=== PATIENT | female | born 1995 | race Caucasian/White ===

== ENCOUNTER 2017-09-05 05:54 | Day surgery (SDC) | payer MEDICAID ==
[2017-09-04 15:05] VITALS: BP 161/90
[2017-09-04 15:46] LABS: BASOPHILS % (AUTO) 0.6 % (0.0-5.0); EOSINOPHILS % (AUTO) 1.2 % (0.0-8.0); HEMATOCRIT 35.7 % (36-48); LYMPHOCYTES % (AUTO) 23.2 % (21.0-51.0); MEAN CORPUSCULAR HEMOGLOBIN 32.8 pg (27.0-33.0); MEAN CORPUSCULAR HGB CONC 35.4 g/dL (32.0-36.0); MEAN CORPUSCULAR VOLUME 92.8 fL (79-99); MONOCYTES % (AUTO) 5.3 % (3.0-13.0); NEUTROPHILS % (AUTO) 69.7 % (40.0-77.0); PLATELET COUNT (AUTO) 459 K/uL (130-400); RED BLOOD CELL COUNT(AUTO) 3.85 MIL/uL (4.00-5.50); RED CELL DISTRIBUTION WIDTH 12.4 % (11.0-15.5); WHITE BLOOD COUNT (AUTO) 9.9 K/uL (4.8-10.8)
[2017-09-05] VITALS (25 sets, daily range): BP systolic 105–143; BP diastolic 50–90
[~2017-09-05] VITALS: Ht 170.2 cm; Wt 116.1 kg
[~2017-09-05 05:54] MED LIST: ALPR2TAB7 PO; FAMO20TA8 PO
[2017-09-05] MEDS: LACTATED RINGERS 1000ML 1,000 ML IV ONE (07:17)
[2017-09-05] MEDS ORDERED: GLYCOPYRROLATE 0.2 MG/ML 5 ML VIAL ONE (08:28)
[2017-09-05] MEDS ORDERED: LIDOCAINE PF 2% 5ML ABBOJECT ONE (08:28)
[2017-09-05] MEDS ORDERED: SUCCINYLCHOLINE 200MG/10ML SYR ONE (08:28)
[2017-09-05] MEDS ORDERED: DEXAMETHASONE SOD PHOSPHATE 10MG/ML 1ML VIAL ONE (08:28)
[2017-09-05] MEDS ORDERED: ONDANSETRON HCL 4 MG/2 ML VIAL ONE (08:28)
[2017-09-05] MEDS ORDERED: FENTANYL CITRATE PF 50 MCG/1 ML 2ML VIAL ONE ×2 (08:29→09:00)
[2017-09-05] MEDS ORDERED: MIDAZOLAM HCL 1 MG/ML 2ML VIAL ONE (08:29)
[2017-09-05] MEDS ORDERED: PROPOFOL 10 MG/ML 20ML VIAL IV ONE (08:29)
[2017-09-05] MEDS: MEPERIDINE-PF 50 MG/ML SYG ONE (10:42)
[2017-09-05] MEDS: ONDANSETRON HCL 4 MG/2 ML VIAL ONE (10:42)
[2017-09-05] MEDS: ACETAMINOPHEN-CODEINE 300/30MG TAB ONE (12:14)
[2017-09-05] MEDS ORDERED: LACTATED RINGERS 1000ML 1,000 ML IV ONE (14:32)
[2017-09-05] MEDS ORDERED: MEPERIDINE-PF 25 MG/ML SYG ONE (15:12)
[2017-09-05] MEDS: MEPERIDINE-PF 25 MG/ML SYG IV PRN (16:27)
== END 2017-09-05 17:15 | disposition home or self-care (01) ==
LOC: DAH 05:54
PROVIDERS: ATTEND Obstetrics & Gynecology
DX: D27.1 Benign neoplasm of left ovary (principal); N83.11 Corpus luteum cyst of right ovary; F31.9 Bipolar disorder, unspecified; F41.9 Anxiety disorder, unspecified; Z80.3 Family history of malignant neoplasm of breast; E66.01 Morbid (severe) obesity due to excess calories; Z68.41 Body mass index [BMI] 40.0-44.9, adult; Z79.899 Other long term (current) drug therapy; Z53.31 Laparoscopic surgical procedure converted to open procedure
CPT/HCPCS: 36415; 58925; 84703; 85025; 86850; 86900; 86901; 88307; A4215; A4344; A4351; A4452; A4510; A4600; A4606; A4649 ×2; A4930 ×2; C1769 ×2; J0330; J1100; J2001; J2175 ×2; J2250; J2405 ×2; J2704; J3010 ×2; J3490; J7120 ×2